=== PATIENT | male | born 2000 | race Two or more races ===

== ENCOUNTER 2023-04-20 20:25 | Emergency (ER) | payer SELFPAY ==
[2023-04-20] MEDS ORDERED: Lidocaine 1% 5 ML VIAL INJECT ONE (22:33)
[2023-04-20] MEDS ORDERED: Diphtheria,Pertussis(Acell),Tetanus Vaccine 0.5 ML Syringe IM ONE (22:33)
== END 2023-04-20 23:42 | disposition home or self-care (01) ==
LOC: MW.ED 20:25
DX: S62.635B Displaced fracture of distal phalanx of left ring finger, initial encounter for open fracture (principal); Z23 Encounter for immunization; W20.8XXA Other cause of strike by thrown, projected or falling object, initial encounter
CPT/HCPCS: 12001; 73140-26-F3; 73140-F3; 90471; 90715; 99283; 99283-25; J3490

== ENCOUNTER 2023-04-30 11:51 | Emergency (ER) | payer SELFPAY | END 2023-04-30 16:01 | disposition left against medical advice (07) | LOC: MW.ED 11:51 | DX: Z48.01 Encounter for change or removal of surgical wound dressing (principal) | CPT/HCPCS: 99281 ==